=== PATIENT | female | born 1985 | race Caucasian/White ===

== ENCOUNTER 2024-08-28 08:37 | Outpatient (AMB) | payer MEDICAID, SELFPAY ==
--- OUTSIDE RECORDS SUMMARY | 2024-08-28 08:41 | XMS_ITS ---
Author Organization [facility] Address [address] [place] [address] Care Team Providers Care Diploma Pharmacy Technician Name Role Phone Jaimee Simmons Primary Care Provider Benji Cleveland Unavailable [phone] Mercedes Amor Unavailable [phone] REASON FOR VISIT New Refill Request Medications Medication SIG (Take, Route, Frequency, Duration) Notes Start Date End Date Status Adderall XR 15 MG 1 capsule in the morning Orally Once a day for 60 days Brand name only please for insurance pls 08/10/2024 Active Amphetamine-Dextroam phetamine 10 MG 1 tablet Orally Twice a day for 60 days for ADHD 08/10/2024 Active Encounters Encounter Location Date Provider Diagnosis [facility] [address] [address] 08/10/2024 Mercedes Amor Attention deficit disorder / ADHD (unspecified) F90.9 Assessments Encounter Date Diagnosis (ICD Code) Assessment Notes Treatment Notes Treatment Clinical Notes Section Notes 08/10/2024 Attention deficit disorder / ADHD (unspecified) (ICD-10 - F90.9) Plan Of Treatment Medication Medication Name Sig Start Date Stop Date Notes Adderall XR 15 MG 1 capsule in the morning Orally Once a day for 60 days 08/10/2024 Brand name only please for insurance pls Amphetamine-Dextroamphe tamine 10 MG 1 tablet Orally Twice a day for 60 days 08/10/2024 for ADHD Next Appt Details Provider Name:Mercedes geller, 09/07/2024 09:30:00 AM, [address] [place] [address], [id number], Provider Name:Benji Cleveland, 0 08/18/2025 08:30:00 AM, [address] [place], [address], Progress Notes * REID CASAREZDOB: [birth year] (38 yo F)Acc No.[id number]:08/10/2024 Patient:?REID CASAREZ :1985???Age:38 Y???Sex:Female Address:[address] [place] [address] , [address], [address] * Refills? Refill Adderall XR Capsule Extended Release 24 Hour, 15 MG, Orally, 60 Capsule, 1 capsule in the morning, Once a day, 60 days, Refills=0 Refill Amphetamine-Dextroamphetamine Tablet, 10 MG, Orally, 120 Tablet, 1 tablet, Twice a day, 60 days, Refills=0 * true * Date:? Generated for Lila vilchis/Geronimo/Edvinsmitting on:?08/28/2024 08:41 AM EDT
--- OUTSIDE RECORDS SUMMARY | 2024-08-28 08:42 | XMS_ITS | Patient Health Record ---
Author Organization [facility] atif Address [address] [place] [address] Care Team Providers Care Burner Technician Name Role Phone Jaimee Simmons Primary Care Provider [phone] Benji Cleveland Unavailable [phone] Mercedes Amor Unavailable [phone] [employer], Provider Unavailable Unavailab Yonatan Nix Unavailable [phone] Allergies Allergen (clinical drug ingredient) Drug/Non Drug Allergy documented on EMR Reaction Allergy Type Onset Date Status quetiapine QUEtiapine dizzy Drug Allergy Inact chago guanfacine guanFACINE dizzy, insomnia Drug Allergy Active clonidine Clonidine dizziness, hangover Drug Allergy Active bupropion Wellbutrin XL very very anxious Drug Allergy Active methylphenidate Ritalin paranoid Drug Allergy A ctive Melatonin harder to settle down Drug Allergy Inactive escitalopram Lexapro more depressed Drug Allergy Active RAW APPLES (uncoded) Unknown Allergy Active DUST, MOLD, TREES, GRASSES (uncoded) Unknown Allergy Active Results Component Value Reference Range Notes URINE G/C (33123 NOHO) Reviewed date:08/17/2024 08:07:51 AM Interpretation: Performing Lab:[facility], [facility]/Brannon Coffey [id number] Kannan Mercer, [id number] Jose Becker M.D.,PhD Notes/Report: Received Date: [id number] NON-FASTING; NON-FASTING; NON-FASTING; NON-FASTING; NON-FAST CHLAMYDIA TRACHOMATIS RNA, TMA, UROGENITAL Not Detected Not Detected NEISSERIA GONORRHOEAE RNA, TMA, UROGENITAL Not Detected Not Detected Methodology: Materials Inspector Mediated Amplification(TMA) to detect RNA. The analytical performance characteristics of this assay, when used to test [facility] specimens have been determined by [employer]. The modifications have not been cleared or approved by the FDA. This assay has been validated pursuant to the CLIA regulations and is used for clinical purposes. For additional information, please refer to https://education.[employer]faq/BWF766 (This link is being provided for information/educational purposes only). Syphilis - RPR (DX) W/REFL T ITER AND CONFIRMATORY TESTING Reviewed date:08/13/2024 01:37:41 PM Interpretation: Performing Lab:[facility] Efraín Horn Notes/Report: Received Date: [id number] NON-FASTING; NON-FASTING; NON-FASTING; NON-FASTING; NON-FAST RPR (DX) W/REFL TITER AND CONFIRMATORY TESTING NON-REACTIVE NON-REACTIVE No laboratory evidence of syphilis. If recent exposure is suspected, submit a new sample in 2-4 weeks. TSH, 3RD GENERATION W/REFLEX TO FT4 Reviewed date:08/13/2024 10:08:14 AM Interpretation: Performing Lab:[facility] Efraín Horn Notes/Report: Received Date: [id number] NON-FASTING; NON-FASTING; NON-FASTING; NON-FASTING; NON-FAST TSH W/REFLEX TO FT4 1.96 Reference Range > or = 20 Years 0.40-4.50 Ranges First trimester 0.26-2.66 Second trimester 0.55-2.73 Third trimester 0.43-2.91 COMPREHENSIVE METABOLIC [facility] -36739 Reviewed date:08/13/2024 10:07:50 AM Interpretation: Performing Lab:[facility] Efraín Horn Notes/Report: Received Date: [id number] NON-FASTING; NON-FASTING; NON-FASTING; NON-FASTING; NON-FAST GLUCOSE 83 65-99 mg/dL Fasting reference interval UREA NITROGEN (BUN) 18 7-25 mg/dL CREATININE 0.70 0.50-0.97 mg/dL EGFR 114 > OR = 60 mL/min/1.73m2 BUN/CREATININE RATIO SEE NOTE: 6-22 (calc) Not Reported: BUN and Creatinine are within reference range. SODIUM 141 135-146 mmol/L POTASSIUM 4.4 3.5-5.3 mmol/L CHLORIDE 103 98-110 mmol/L CARBON DIOXIDE 28 20-32 mmol/L CALCIUM 9.7 8.6-10.2 mg/dL PROTEIN, TOTAL 7.1 6.1-8.1 g/dL ALBUMIN 4.8 3.6-5.1 g/dL GLOBULIN 2.3 1.9-3.7 g/dL (calc) ALBUMIN/GLOBULIN RATIO 2.1 1.0-2.5 (calc) BILIRUBIN, TOTAL 0.5 0.2-1.2 mg/dL ALKALINE PHOSPHATASE 61 31-125 U/L AST 16 10-30 U/L ALT 22 6-29 U/L HIV AB-AG 4TH GENERATION Reviewed date:08/13/2024 10:08:08 AM Interpretation: Performing Lab:NL2, [facility] [address] [place], [place] [address] Efraín Horn Notes/Report: Received Date: [id number] NON-FASTING; NON-FASTING; NON-FASTING; NON-FASTING; NON-FAST HIV AG/AB, 4TH GEN NON-REACTIVE NON-REACTIVE HIV-1 antigen and HIV-1/HIV-2 antibodies were not detected. There is no laboratory evidence of HIV infection. PLEASE NOTE: This information has been disclosed to you from records whose confidentiality may be protected by state law. If your state requires such protection, then the state law prohibits you from making any further disclosure of the information without the specific written consent of the person to whom it pertains, or as otherwise permitted by law. A general authorization for the release of medical or other information is NOT sufficient for this purpose. For additional information please refer to http://education.[employer]/faq/GOF315 (This link is being provided for informational/ educational purposes only.) The performance of this assay has not been clinically validated in patients less than 2 years old. CBC NO DIFF - 1759 Reviewed date:08/13/2024 10:07:57 AM Interpretation: Performing Lab:NL[facility], [facility] [id number] [facility] Efraín Horn Notes/Report: Received Date: NON-FASTING; NON-FASTING; NON-FASTING; NON-FASTING; NON-FAST WHITE BLOOD CELL COUNT 6.7 3.8-10.8 Thousand/ uL RED BLOOD CELL COUNT 4.78 3.80-5.10 Million/uL HEMOGLOBIN 15.0 11.7-15.5 g/dL HEMATOCRIT 44.6 35.0-45.0 % MCV 93.3 80.0-100.0 fL MCH 31.4 27.0-33.0 pg MCHC 33.6 32.0-36.0 g/dL For adults, a slight decrease in the calculated MCHC value (in the range of 30 to 32 g/dL) is most likely not clinically significant; however, it should be interpreted with caution in correlation with other red cell parameters and the patient's clinical condition. RDW 11.8 11.0-15.0 % PLATELET COUNT 300 140-400 Thousand/uL MPV 10.8 7.5-12.5 fL Reason For Referral Reason Allergies Diagnosis 1 Allergic rhinitis du e to pollen (J30.1) Diagnosis 2 Allergy to animal (c at) (dog) hair and dander (J30.81) Diagnosis 3 Allergic rhinitis, u nspecified (J30.9) Diagnosis 4 Other allergic rhini tis (J30.89) Referral Organization [facility] Referring Provider First Name Benji Referring Provider Last Name Cristofer Referring Provider Speciality [facility] Referred Provider GROUP MARIELLA Referred Provider Specialty Allergy/Immu nology General Notes Jamila Whipple 05/21 02:23:49 PM > referral faxed to: [phone], You have successfully submitted the Referral for REID CASAREZ ., The following Referral Authorization Number should be retained in your records., Referral Authorization # [id number], Number of Visits 60 Clinical Notes Provider Name: GROUP MARIELLA, Provider ID Number: , Provider UPIN: Rere barreto [phone], Provider , Provider Facility: , Provider Speciality: Allergy/Immunology, Address1: [address] [facility], Address2: [facility] phone- , [facility], Zip: [place], [address], , Appt. Date/Time: , Referral Priority Routine Reason Chronic L outer thig h pain, numbness Diagnosis 1 Pain leg, left (M79. 605) Referral Organization [facility] Referring Provider First Name Benji Referring Provider Last Name Cristofer Referring Provider Speciality [facility] Referred Provider [facility], [facility] Referred Provider Specialty Pain Managem ent General Notes Jamila Whipple 07/19 10:54:42 AM > referral faxed to: [phone], You have successfully submitted the Referral for REID CASAREZ ., The following Referral Authorization Number should be retained in your records., Referral Authorization # [id number], Number of Visits 12 Clinical Notes Provider Name: [facility], [facility], Provider ID Number: , Provider UPIN: , Provider , Provider Facility: , Provider Speciality: Pain Management, Address1: [address], Address2: [address], [facility], Zip: [place], [address], , Appt. Date/Time: , Referral Priority Routine Medications Medication SIG (Take, Route, Frequency, Duration) Notes Start Date End Date Status ZyrTEC Allergy 10 MG 1 tab(s) orally once a day Active LITHIUM ORATATE 10MG 1 TAB PO ONCE A DAY Active DULoxetine HCl 20 MG TAKE 1 CAPSULE BY MOUTH EVERY DAY FOR 90 DAYS for 90 Active LAMICTAL 150 mg 1 tab(s) orally 2 times a day for 30 days Active Levalbuterol Tartrate 45 MCG/ACT 2 puff(s) inhaled every 4 hours for 30 day(s) prn Active Xyzal Allergy 24HR 5 MG 1 tab(s) orally once a day (in the evening) for 30 day(s) Active Cromolyn Sodium 20 MG/2ML 2 mL orally TID Active Vitamin D3 25 MCG (1000 UT) PO BID Active Pregabalin 75 MG 1 capsule Orally twice a day for 60 days 06/17/2024 Active Diclofenac Sodium 75 MG 1 tab(s) orally 2 times a day for 30 days Active Qvar RediHaler 40 MCG/ACT 1 puff Inhalation Twice a day Active Adderall XR 15 MG 1 capsule in the morning Orally Once a day for 60 days Brand name only please for insurance pls 08/10/2024 Active CYMBALTA 20 mg 1 cap(s) orally once a day for 90 days Active Amphetamine-Dextroamp hetamine 10 MG 1 tablet Orally Twice a day for 60 days for ADHD 08/10/2024 Active Immunizations Vaccine Route Administration Date Status Comme nts FLUBLOK PURCHASED IM Intramuscular 02/19/2019 Administered TDAP >7 PURCHASED (ADACEL) IM Intramuscular 02/20/2019 Administered COVID-19 Vaccine (Fantoo), History Unknown 08/06/2020 Administered COVID-19 Vaccine (Pfizer), History Unknown 08/27/2020 Administered FLUBLOK PURCHASED IM Intramuscular 07/28/2021 Administered TDAP >7 PURCHASED (ADACEL) IM Intramuscular 07/28/2021 Administered Covid Vac Bivalent Pfizer (history) 12+ Unknown 02/08/2022 Administered lot [id number], luisSplother Flu Vaccine; History Unknown 05/12/2024 Administered COVID19 NOVAVAX HISTORY Unknown 05/12/2024 Administered Problems Problem Type SNOMED Code ICD Code Onset Dates Problem Status W/U Status Risk Notes Problem Attention deficit hyperactivity disorder (711809210) Attention deficit disorder / ADHD (unspecified) (F90.9) Active confirmed Problem Allergic rhinitis (48702395) Allergic rhinitis, unspecified (J30.9) Active confirmed Problem Skin sensation disturbance (21452263) Paresthesia of skin (R20.2) Active confirmed Problem Cyclothymic disorder (15315681) Cyclothymic disorder (F34.0) Active confirmed Problem Allergic rhinitis due to pollen (45013987) Allergic rhinitis due to pollen (J30.1) Active confirmed Problem Exercise induced bronchospasm (271564456) Exercise induced bronchospasm (J45.990) Active confirmed Problem Obese class II (348250729002019) BMI 35.0-35.9, adult (Z68.35) Active confirmed Problem Attention deficit hyperactivity disorder (025463100) ADHD, unspecified type (F90.9) Active confirmed Problem Chronic allergic conjunctivitis (45986551) Other chronic allergic conjunctivitis (H10.45) Active confirmed Problem Allergic rhinitis (46213405) Other allergic rhinitis (J30.89) Active confirmed Problem Mild intermittent asthma (783219961) Mild intermittent asthma, uncomplicated (J45.20) Active confirmed Problem Allergic rhinitis caused by animal hair and dander (558961394959854) Allergy to animal (cat) (dog) hair and dander (J30.81) Active confirmed Vital Signs Temperature 98.0 degrees Fahrenheit 08/12/2024 Oximetry 99 08/12/2024 Blood pressure diastolic 76 mm Hg 08/12/2024 Height 63.03 in 08/12/2024 Blood pressure systolic 120 mm Hg 08/12/2024 Weight 199 lbs 08/12/2024 BMI 35.21 kg/m2 08/12/2024 Encounters Encounter Location Date Provider Diagnosis [facility] [address] [address] 08/12/2024 Benji Cristofer Adult physical HERBERT L Z00.00 ; Pain leg, left M79.605 ; Mild intermittent asthma, uncomplicated J45.20 ; Encounter for screening for infections with a predominantly sexual mode of transmission Z11.3 ; BMI 35.0-35.9, adult Z68.35 and Fatigue R53.83 [place] [address] [place] [address] 09/17/2023 Mercedes Vaillant ADHD, unspecified type F90.9 [place] [address] [place] [address] 09/24/2023 Mercedes Vaillant ADHD, unspecified type F90.9 [place] [address] [place] [address] 10/08/2023 Mercedes Vaillant ADHD, unspecified type F90.9 [place] [address] [place] [address] 10/15/2023 Mercedes Vaillant ADHD, unspecified type F90.9 [place] [address] [place] [address] 10/22/2023 Mercedes Vaillant ADHD, unspecified type F90.9 [place] [address] [place] [address] 10/29/2023 Mercedes Vaillant ADHD, unspecified type F90.9 [place] [address] [place] [address] 11/05/2023 Mercedes Vaillant ADHD, unspecified type F90.9 [place] [address] [place] [address] 11/10/2023 Provider LAZMijessica [place] [address] [place] [address] 11/11/2023 Mercedes Vaillant Attention deficit disorder / ADHD (unspecified) F90.9 and Cyclothymic disorder F34.0 [place] [address] [place] [address] 11/12/2023 Mercedes Vaillant ADHD, unspecified type F90.9 [place] [address] [place], [place] [address] 12/17/2023 Mercedes Vaillant ADHD, unspecified type F90.9 [facility] [place] [address] 01/07/2024 Mercedes Vaillant Attention deficit disorder / ADHD (unspecified) F90.9 and Cyclothymic disorder F34.[address] [facility] [address] [address] 01/09/2024 Benji Cristofer ADHD, unspecified type F90.9 ; Fatigue R53.83 and Cyclothymic disorder F34.[address] [address] 02/12/2024 Jaimee Simmons Cyclothymic disorder F34.[address] [facility] [address] [address] 02/17/2024 Mercedes Vaillant Attention deficit disorder / ADHD (unspecified) F90.9 and Cyclothymic disorder F34.0 [place] [address] [place] [address] 02/18/2024 Jaimee Simmons ADHD, unspecified type F90.9 and Cyclothymic disorder F34.[address] [facility] [address] [address] 02/26/2024 Jaimee Simmons Cyclothymic disorder F34.0 and Attention deficit disorder / ADHD (unspecified) F90.9 [place] [address] [place] [address] 04/07/2024 Mercedes Amor Attention deficit disorder / ADHD (unspecified) F90.9 and Cyclothymic disorder F34.0 [facility] [address] [place] [address] 07/13/2024 Mercedesdaniele Amor Attention deficit disorder / ADHD (unspecified) F90.9 and Cyclothymic disorder F34.0 [place] [address] [place] [address] 09/13/2023 Benji Cleveland Pain leg, left M79.605 [place] [address] [place] [address] 09/20/2023 Jaimee Simmons [place] [address] [place] [address] 10/04/2023 Benji Cleveland [place] [address] [place] [address] 11/11/2023 Jaimee [place] [address] [place] [address] 11/11/2023 Mercedes Amor [place] [address] [place] [address] 01/07/2024 Jaimee Simmons [place] [address] [place] [address] 01/09/2024 Benji Cleveland [place] [address] [place] [address] 02/26/2024 Jaimee Simmons [place] [address] [place] [address] 03/24/2024 Jaimee Simmons [facility] [address] [place] [address] 03/24/2024 Jaimee Simmons [facility] [address] [place] [address] 04/07/2024 Jaimee Simmons [facility] [address] [place] [address] 06/02/2024 Jaimee Simmons [facility] [address] [place] [address] 06/17/2024 Benji Cleveland Fatigue R53.83 [facility] [address] [place] [address] 06/24/2024 Benji Cleveland [facility] [address] [place] [address] 07/27/2024 Benji Cleveland [address] [address] 09/12/2023 Benji Cleveland Pain leg, left M79.[address] [address] 09/12/2023 Benji Cleveland Pain leg, left M79.[address] [address] 09/13/2023 Benji Cleveland Pain leg, left M79.[address] [address] 10/03/2023 Mercedes Amor Attention deficit disorder / ADHD (unspecified) F90.[address] [address] 10/03/2023 Mercedes Amor Attention deficit disorder / ADHD (unspecified) F90.[address] [address] 02/12/2024 Mercedes Amor Attention deficit disorder / ADHD (unspecified) F90.[address] [address] 06/12/2024 Yonatan Lehman Attention deficit disorder / ADHD (unspecified) F90.[address] [address] 08/10/2024 Mercedes Amor Attention deficit disorder / ADHD (unspecified) F90.9 Assessments Encounter Date Diagnosis (ICD Code) Assessment Notes Treatment Notes Treatment Clinical Notes Section Notes 08/12/2024 Adult physical NORMAL (ICD-10 - Z00.00) see below 08/12/2024 Pain leg, left (ICD-10 - M79.605) Notes chronic L thigh numbness , pain sensation. With medication has been less noticable but still present. Has had prior EMG and evaluation due to pain. 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 Referral to [facility] pain management made 09/17/2023 ADHD, unspecified type (ICD-10 - F90.9) Notes: Notes: Pt appears tearful at times, reflective, grounded Risk assessment: Passive SI, ongoing; No SH; No HI Clinical Intervention: Supportive and empathetic listening. Space for Lucy to process recent stressors, challenges, and successes. Facilitated identification of support strategies, and processed coping strategies around unmet expectations of others. Pts response to intervention: Engaged. Processed recent points of stress, connection, and accomplishment. Reflected on self growth, progress towards goals. Identified support strategies. 09/24/2023 ADHD, unspecified type (ICD-10 - F90.9) Notes: Notes: Pt appears tearful at times, reflective, grounded Risk assessment: Passive SI, ongoing; No SH; No HI Clinical Intervention: Supportive and empathetic listening. Space for Lucy to process recent stressors, challenges, and successes. Facilitated identification of support strategies, and processed coping strategies around unmet expectations of others. Pts response to intervention: Engaged. Processed recent points of stress, connection, and accomplishment. Reflected on self growth, progress towards goals. Identified support strategies. 10/08/2023 ADHD, unspecified type (ICD-10 - F90.9) Notes: Notes: Pt appears tearful at times, reflective, grounded Risk assessment: Passive SI, ongoing; No SH; No HI Clinical Intervention: Supportive and empathetic listening. Space for Lucy to process recent stressors, challenges, and successes. Facilitated identification of support strategies, and processed coping strategies around unmet expectations of others. Pts response to intervention: Engaged. Processed recent points of stress, connection, and accomplishment. Reflected on self growth, progress towards goals. Identified support strategies. 10/15/2023 ADHD, unspecified type (ICD-10 - F90.9) Notes: Notes: Pt appears tearful at times, reflective, grounded Risk assessment: Passive SI, ongoing; No SH; No HI Clinical Intervention: Supportive and empathetic listening. Space for Lucy to process recent stressors, challenges, and successes. Facilitated identification of support strategies, and processed coping strategies around unmet expectations of others. Pts response to intervention: Engaged. Processed recent points of stress, connection, and accomplishment. Reflected on self growth, progress towards goals. Identified support strategies. 10/22/2023 ADHD, unspecified type (ICD-10 - F90.9) Notes: Notes: Pt appears tearful at times, reflective, grounded Risk assessment: Passive SI, ongoing; No SH; No HI Clinical Intervention: Supportive and empathetic listening. Space for Lucy to process recent stressors, challenges, and successes. Facilitated identification of support strategies, and processed coping strategies around unmet expectations of others. Pts response to intervention: Engaged. Processed recent points of stress, connection, and accomplishment. Reflected on self growth, progress towards goals. Identified support strategies. 10/29/2023 ADHD, unspecified type (ICD-10 - F90.9) Notes: Notes: Pt appears tearful at times, reflective, grounded Risk assessment: Passive SI, ongoing; No SH; No HI Clinical Intervention: Supportive and empathetic listening. Space for Lucy to process recent stressors, challenges, and successes. Facilitated identification of support strategies, and processed coping strategies around unmet expectations of others. Pts response to intervention: Engaged. Processed recent points of stress, connection, and accomplishment. Reflected on self growth, progress towards goals. Identified support strategies. 11/05/2023 ADHD, unspecified type (ICD-10 - F90.9) Notes: Notes: Pt appears tearful at times, reflective, grounded Risk assessment: Passive SI, ongoing; No SH; No HI Clinical Intervention: Supportive and empathetic listening. Space for Lucy to process recent stressors, challenges, and successes. Facilitated identification of support strategies, and processed coping strategies around unmet expectations of others. Pts response to intervention: Engaged. Processed recent points of stress, connection, and accomplishment. Reflected on self growth, progress towards goals. Identified support strategies. 11/11/2023 Attention deficit disorder / ADHD (unspecified) (ICD-10 - F90.9) Extensive counseling and emotional support. Coordination of care and vrpi-mk-natv counseling constituted more than half of the visit, review concerns, medications, coping, consultations etc. , Pt reports significant improvement in focus, clarity and overall executive function. Denies SE/AE including insomnia, irritability, increased impulsivity, loss of appetite, weight change, BED sx, cardiac symptoms, crash, or neurological sequelae such as tics or twitches. 11/11/2023 Cyclothymic disorder (ICD-10 - F34.0) Overlall well supported; with good insight and judgment. Mood stabilizing somewhat on cymbalta, increased lamictal; no changes made today. Needs a therapist; moving, between jobs: advised that this is a vulnerable time and to prioritize what they can control, I.e. sleep, self care, communication. Enc to try again with Leaves of Change or QUINCY. Meds therapeutic and tolerated, will continue as written, TE to PCP re: possibility of lyrica Refills sent as needed. RTO 3 mos tele 11/12/2023 ADHD, unspecified type (ICD-10 - F90.9) Notes: Notes: Pt appears tearful at times, reflective, grounded Risk assessment: Passive SI, ongoing; No SH; No HI Clinical Intervention: Supportive and empathetic listening. Space for Lucy to process recent stressors, challenges, and successes. Facilitated identification of support strategies, and processed coping strategies around unmet expectations of others. Pts response to intervention: Engaged. Processed recent points of stress, connection, and accomplishment. Reflected on self growth, progress towards goals. Identified support strategies. 12/17/2023 ADHD, unspecified type (ICD-10 - F90.9) Notes: Notes: Pt appears tearful at times, reflective, grounded Risk assessment: Passive SI, ongoing; No SH; No HI Clinical Intervention: Supportive and empathetic listening. Space for Lucy to process recent stressors, challenges, and successes. Facilitated identification of support strategies, and processed coping strategies around unmet expectations of others. Pts response to intervention: Engaged. Processed recent points of stress, connection, and accomplishment. Reflected on self growth, progress towards goals. Identified support strategies. 01/07/2024 Attention deficit disorder / ADHD (unspecified) (ICD-10 - F90.9) Extensive counseling and emotional support. Coordination of care and uurz-xt-vjei counseling constituted more than half of the visit, review concerns, medications, coping, consultations etc. , Pt reports significant improvement in focus, clarity and overall executive function. Denies SE/AE including insomnia, irritability, increased impulsivity, loss of appetite, weight change, BED sx, cardiac symptoms, crash, or neurological sequelae such as tics or twitches. Enc to f/u on therapy and pain mgmt appt Needs help with structure so we discussed EFE and enc to f.u with [facility] to enroll 01/07/2024 Cyclothymic disorder (ICD-10 - F34.0) Overlall well supported; with good insight and judgment. Mood stabilizing somewhat on cymbalta, increased lamictal; no changes made today. seeing ZA and likes her, has been off much of the summer Meds therapeutic and tolerated, will continue as written, TE to PCP re: possibility of lyrica Refills sent as needed. RTO 3 mos tele 01/09/2024 ADHD, unspecified type (ICD-10 - F90.9) Managed by psychiatrist, had recent check in, stable. 01/09/2024 Fatigue (ICD-10 - R53.83) will plan to begin lyrica in relation to chronic pain, fatigue, mood. Reviewed proper use, potential side effects and possible medication interactions. Has close follow up with psychiatrist scheduled. Call back sooner as needed 02/12/2024 Cyclothymic disorder (ICD-10 - F34.0) - Provided psychoeducation related to anxiety and nervous system states - Engaged patient in coherent breathing training to activate parasympathetic nervous system. Patient reports my mind is not as loud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
--- OUTSIDE RECORDS SUMMARY | 2024-08-28 08:42 | XMS_ITS ---
Author Organization [facility] atif Address [address] [place] [address] Care Team Providers Care Stave Grader Name Role Phone Jaimee Simmons Primary Care Provider Benji Cleveland Unavailable [phone] Allergies Allergen (clinical drug ingredient) Drug/Non Drug Allergy documented on EMR Reaction Allergy Type Onset Date Status Melatonin harder to settle down Drug Allergy Inactive escitalopram Lexapro more depressed Drug Allergy Active RAW APPLES (uncoded) Unknown Allergy Active DUST, MOLD, TREES, GRASSES (uncoded) Unknown Allergy Active clonidine Clonidine dizziness, hangover Drug Allergy Active bupropion Wellbutrin XL very very anxious Drug Allergy Active methylphenidate Ritalin paranoid Drug Allergy A ctive quetiapine QUEtiapine dizzy Drug Allergy Inact chago guanfacine guanFACINE dizzy, insomnia Drug Allergy Active Results Component Value Reference Range Notes URINE G/C (56094 NOHO) Reviewed date:08/17/2024 08:07:51 AM Interpretation: Performing Lab:Kp MEJIAS/Brannon SpicerDannielle [id number] [facility] , [id number] Jose Becker M.D.,PhD Notes/Report: Received Date: [id number] NON-FASTING; NON-FASTING; NON-FASTING; NON-FASTING; NON-FAST CHLAMYDIA TRACHOMATIS RNA, TMA, UROGENITAL Not Detected Not Detected NEISSERIA GONORRHOEAE RNA, TMA, UROGENITAL Not Detected Not Detected Methodology: Copy Messenger Mediated Amplification(TMA) to detect RNA. The analytical performance characteristics of this assay, when used to test SurePath specimens have been determined by [employer] The modifications have not been cleared or approved by the FDA. This assay has been validated pursuant to the CLIA regulations and is used for clinical purposes. For additional information, please refer to https://Keepy.Gudog/faq/DOG045 (This link is being provided for information/educational purposes only). Syphilis - RPR (DX) W/REFL T ITER AND CONFIRMATORY TESTING Reviewed date:08/13/2024 01:37:41 PM Interpretation: Performing Lab:MONI[facility], [employer] [facility] Efraín Horn Notes/Report: Received Date: [id number] NON-FASTING; NON-FASTING; NON-FASTING; NON-FASTING; NON-FAST RPR (DX) W/REFL TITER AND CONFIRMATORY TESTING NON-REACTIVE NON-REACTIVE No laboratory evidence of syphilis. If recent exposure is suspected, submit a new sample in 2-4 weeks. TSH, 3RD GENERATION W/REFLEX TO FT4 Reviewed date:08/13/2024 10:08:14 AM Interpretation: Performing Lab:MONI[facility], [employer] [facility] Efraín Horn Notes/Report: Received Date: [id number] NON-FASTING; NON-FASTING; NON-FASTING; NON-FASTING; NON-FAST TSH W/REFLEX TO FT4 1.96 Reference Range > or = 20 Years 0.40-4.50 Ranges First trimester 0.26-2.66 Second trimester 0.55-2.73 Third trimester 0.43-2.91 [facility] -[address] Reviewed date:08/13/2024 10:07:50 AM Interpretation: Performing Lab:NL2, [employer] [facility] Efraín Horn Notes/Report: Received Date: [id number] NON-FASTING; NON-FASTING; NON-FASTING; NON-FASTING; NON-FAST GLUCOSE 83 [...] Reviewed date:08/13/2024 10:08:08 AM Interpretation: Performing Lab:NL2, [employer] [facility] Efraín Horn Notes/Report: Received Date: [id number] NON-FASTING; NON-FASTING; NON-FASTING; NON-FASTING; NON-FAST HIV AG/AB, [...] purpose. For additional information please refer to http://education.Bouju.JOYsee [employer]/faq/RPZ670 (This link is being provided for informational/ educational purposes only.) The performance of this assay has not been clinically validated in patients less than 2 years old. CBC NO DIFF - 1759 Reviewed date:08/13/2024 10:07:57 AM Interpretation: Performing Lab:NL2, [employer] [facility] Efraín Horn Notes/Report: Received Date: [id number] NON-FASTING; NON-FASTING; NON-FASTING; NON-FASTING; NON-FAST WHITE BLOOD [...] 10.8 7.5-12.5 fL Reason For Referral Reason Chronic L outer thig h pain, numbness Diagnosis 1 Pain leg, left (M79. 605) Referral Organization [facility] Referring Provider First Name Benji Referring Provider Last Name Cristofer Referring Provider Speciality Family Pra ctice Referred Provider [facility], Pain Management Center Referred Provider Specialty Pain Managem ent General Notes Jamila Whipple 07/19 10:54:42 AM > referral faxed to: [phone], You have successfully submitted the Referral for REID CASAREZ ., The following Referral Authorization Number should be retained in your records., Referral Authorization # [id number], Number of Visits 12 Clinical Notes Provider Name: [facility] [place], [facility], Provider ID Number: , Provider UPIN: , Provider , Provider Facility: , Provider Speciality: Pain Management, Address1: [address], Address2: [address], City, [facility], Zip: [place], [address], , Appt. Date/Time: , Referral Priority Routine REASON FOR VISIT CPE- fu, PHQ9: in progress, PAP: last 08/04/2022 (NILM, HPV negative), Imms: UTD (checked miis ldb),Hearing screen:, LEAH= 3, ADHD=47 Medications Medication SIG (Take, Route, Frequency, Duration) Notes Start Date End Date Status LAMICTAL 150 mg 1 tab(s) orally 2 times a day for 30 days Active Xyzal Allergy 24HR 5 MG 1 tab(s) orally once a day (in the evening) for 30 day(s) Active Cromolyn Sodium 20 MG/2ML 2 mL orally TID Active Qvar RediHaler 40 MCG/ACT 1 puff Inhalation Twice a day Active CYMBALTA 20 mg 1 cap(s) orally once a day for 90 days Active Levalbuterol Tartrate 45 MCG/ACT 2 puff(s) inhaled every 4 hours for 30 day(s) prn Active Diclofenac Sodium 75 MG 1 tab(s) orally 2 times a day for 30 days Active Adderall XR 15 MG 1 capsule in the morning Orally Once a day for 60 days Brand name only please for insurance pls 08/10/2024 Active Amphetamine-Dextroamp hetamine 10 MG 1 tablet Orally Twice a day for 60 days for ADHD 08/10/2024 Active ZyrTEC Allergy 10 MG 1 tab(s) orally once a day Active LITHIUM ORATATE 10MG 1 TAB PO ONCE A DAY Active DULoxetine HCl 20 MG TAKE 1 CAPSULE BY MOUTH EVERY DAY FOR 90 DAYS for 90 Active Vitamin D3 25 MCG (1000 UT) PO BID Active Pregabalin 75 MG 1 capsule Orally twice a day for 60 days 06/17/2024 Active Vital Signs Temperature 98.0 degrees Fahrenheit 08/13/19 25 Blood pressure systolic 120 mm Hg 08/13/19 25 Blood pressure diastolic 76 mm Hg 025 Height 63.03 in 08/12/2024 Weight 199 lbs 08/12/2024 BMI 35.21 kg/m2 08/12/2024 Oximetry 99 08/12/2024 Encounters Encounter Location Date Provider Diagnosis [facility] [address] [address] 08/12/2024 Benji Cleveland Adult physical HERBERT L Z00.00 ; Pain leg, left M79.605 ; Mild intermittent asthma, uncomplicated J45.20 ; Encounter for screening for infections with a predominantly sexual mode of transmission Z11.3 ; BMI 35.0-35.9, adult Z68.35 and Fatigue R53.83 Assessments Encounter Date Diagnosis (ICD Code) Assessment [...] other non medication alternatives for management with painter mirror. Referral to [facility] pain management made 08/12/2024 Mild intermittent asthma, uncomplicated (ICD-10 - J45.20) Chronic Condition stable and controlled. continue same plan with current medication and scheduled reassessment, awaiting QVAR refill per insole department worker. Has samples in interim 08/12/2024 Encounter for screening for infections with a predominantly sexual mode of transmission (ICD-10 - Z11.3) 08/12/2024 BMI 35.0-35.9, adult (ICD-10 - Z68.35) reviewed lifestyle, update labs 08/12/2024 Fatigue (ICD-10 - R53.83) Discussed mood, supports, sleep challenges. Recommended CBT-I. Patient notes may have change in insurance and then will hopefully continue working with MILA and find therapist as well. 08/12/2024 Other see below Plan Of Treatment Treatment Notes Assessment Notes Adult physical NORMAL see below Pain leg, left Notes chronic L thig h numbness , pain sensation. With medication has been less noticable but still present. Has had prior EMG and evaluation due to pain. Given chronic nature patient would like to explore other non medication alternatives for management with painter mirror. Referral to [facility] pain management made Mild intermittent asthma, uncomplicated Chronic Condition stable and controlled. continue same plan with current medication and scheduled reassessment, awaiting QVAR refill per insole department worker. Has samples in interim BMI 35.0-35.9, adult reviewed lifestyle, update labs Fatigue Discussed mood, supp orts, sleep challenges. Recommended CBT-I. Patient notes may have change in insurance and then will hopefully continue working with MILA and find therapist as well. Other see below Pending Test Test Name Order Date COMP MET PANEL 08/12/2024 Referrals Referral Date Details 08/12/2024 08/12/2024, Chronic L outer thigh pain, numbness, Pain Management [facility] Next Appt Details Follow Up: 1 Year Frederic METZGER n: Provider Name:Mercedes geller, 09/07/2024 09:30:00 AM, [address] [place] [address], [address], Provider Name:Benji Cleveland, 0 08/18/2025 08:30:00 AM, [address] [place], [address], Progress Notes * REID CASAREZDOB: [birth year] (38 yo F)Acc No.[id number]:08/12/2024 Progress Notes Patient:?REID CASAREZ Appointment Provider:?SKYLER Soler :1985???Age:38 Y???Sex:Female S upervising Provider:Jaimee Simmons MD Date:08/12/2024 ?N#:[id number] Address:[address] [place] [address] , [address] [place] [address] Pcp:Jaimee Simmons Subjective: * Chief Complaints: * ???1. CPE- fu. 2. PHQ9: in p rogress. 3. PAP: last 08/04/2022 (NILM, HPV negative). 4. Imms: UTD (checked miis ldb). 5. Hearing screen:. 6. LEAH= 3. 7. ADHD=47. * HPI: ???Interim History:?38 year old patient presents for follow up Asthma has been stable. Working with insole department worker on management. QVAR is being held up by insurance and insole department worker working on getting it approved.? The chronic nerve pain to outside of L thigh is less prominent but still present. Considering diagnostic nerve block if possible with specialist. EMG was performed in past.? Working with mercedes maza for psychiatric management. But having to find new psychiatrist due to insurance.? 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 Has tried antihistamines, clonidine.? Exercise: biking, walking - life is more active No current therapist, may reconnect with dante. ???Depression Screening:?PHQ-9?Little interest or pleasure in doing things?Several days,?Feeling down, depressed, or hopeless?Several days,?Trouble falling or staying asleep, or sleeping too much?Nearly every day,?Feeling tired or having little energy More than half the days,?Poor appetite or overeating?More than half the days,?Feeling bad about yourself-or that you are a failure or have let yourself or your family down?More than half the days,?Trouble concentrating on things, such as reading the newspaper or watching television?Several days,?Moving or speaking so slowly that other people could have noticed. Or the opposite, being so fidgety or restless that you have been moving around a lot more than usual?Several days,?Thoughts that you would be better off , or of hurting yourself in some way?Several days(Consider Suicide Assessment Risk),?Total Score?14,?Intepretation?Moderate Depression.? * ROS:?See HPI. Other systems reviewed and noncontributory except for as noted above . * Medical History:?Asthma , De pression, ADHD, 04/09 colonoscopy, endoscopy [facility], 12/08-01/08 R Knee injections for pain and inflammation, Chronic nerve pain in L leg - [facility] - had EMG, Meralgia Paresthetica. 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 * Surgical History:?[place] eufemia th removal (15 years ago) . * Hospitalization/Major Diagno stic Procedure:?Denies Past Hospitalization. * Family History:?Father: dece ased 50 yrs, ETOH, suicide.?Mother: alive, Pre- diabetes, cystic breasts (BRCA negatve).?Paternal Grand Father: unknown.?Paternal Grand Mother: , T2DM.?Maternal Grand Father: alive 90 yrs, Hx of AL, stroke, skin cancer.?Maternal Grand Mother: , breast cancer.?Maternal uncle: alive, skin cancer.?Siblings: alive, 1 Brother with kidney cancer, s/p nephrectomy, 1 brother - depression, anxiety, ADD.?2 brother(s) . .? mother: DMII. * Social History:?Lives: [place], renting ; lives alone. Ed: Some college ([employer]). Smoking?Current Smoker:?nonsmoker,?Former Smoker:?No.?Alcohol: 1 drink per week. Drug use: No drugs. Marital Status: Dating, male and female partners. Children: None. 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 Christianity: none. Exercise: Exercise + cleaning;. Caffeine: Drinking 1-2 cup per day. Sexually active: Yes with males and females, has multiple partners and gets regular STI testing. Pets: None. Training for 50 mi bike ride. * Medications:?Taking Qvar Red iHaler 40 MCG/ACT Aerosol Breath Activated 1 puff Inhalation Twice a day , Taking CYMBALTA 20 mg delayed release capsule 1 cap(s) orally once a day , Taking LAMICTAL 150 mg tablet 1 tab(s) orally 2 times a day , Taking Xyzal Allergy 24HR 5 MG Tablet 1 tab(s) orally once a day (in the evening) , Taking Cromolyn Sodium 20 MG/2ML Nebulization Solution 2 mL orally TID , Taking Vitamin D3 25 MCG (1000 UT) Tablet PO BID , Taking ZyrTEC Allergy 10 MG Tablet 1 tab(s) orally once a day , Taking LITHIUM ORATATE 10MG TABLET 1 TAB PO ONCE A DAY , Taking DULoxetine HCl 20 MG Capsule Delayed Release Particles TAKE 1 CAPSULE BY MOUTH EVERY DAY FOR 90 DAYS , Taking Pregabalin 75 MG Capsule 1 capsule Orally twice a day , Taking Diclofenac Sodium 75 MG Tablet Delayed Release 1 tab(s) orally 2 times a day , Taking Adderall XR 15 MG Capsule Extended Release 24 Hour 1 capsule in the morning Orally Once a day , Notes to Pharmacist: Brand name only please for insurance pls, Taking Amphetamine-Dextroamphetamine 10 MG Tablet 1 tablet Orally Twice a day , Notes to Pharmacist: for ADHD, Taking Levalbuterol Tartrate 45 MCG/ACT Aerosol 2 puff(s) inhaled every 4 hours , Notes to Pharmacist: prn, Discontinued lamoTRIgine 150 MG Tablet TAKE 1 TABLET BY MOUTH TWICE A DAY FOR 30 DAYS , Medication List reviewed and reconciled with the patient * Allergies:?DUST, MOLD, TREES , GRASSES: Allergy, RAW APPLES: Allergy, guanFACINE: dizzy, insomnia - Side Effects, Ritalin: paranoid, Wellbutrin XL: very very anxious, Lexapro: more depressed - Side Effects, Clonidine: dizziness, hangover. Objective: * Vitals:?Initials:TW, Ht: 63. 03 in, Wt: 199 lbs, BMI: 35.21 Index, Temp: 98.0 F, Temp Route: T, HR: 88, PulseOx: 99, BP: 120/76. * Physical Examination:?GENERAL:?General Appearence:?well appearing, no acute distress.?SKIN:?Moles:?benign appearing.?LYMPH NODES:?Cervical:?none.?Supraclavicular:?none.?HEENT:?Head:?normocephalic.?Eyes:?ERLA.?Nose:?normal.?Tympanic membrane(s):?bilateral normal.?NECK:?General:?supple.?Thyroid:?Not enlarged.?Cervical lymph nodes:?normal.?Muscles:?normal.?CHEST:?Shape and expansion:?normal.?Breath sounds:?normal.?Rales:?no.?Wheezes:?no.?HEART:?Rhythm:?regular.?Heart sounds:?normal.?Murmurs:?no.?Clicks:?no.?ABDOMEN:?General:?normal.?Guarding:?no.?Tenderness:?no.?Masses:?no.?Liver, Spleen:?not palpable.?Hernia:?absent.?BACK:?Spine:?normal.?GENITOURINARY - FEMALE:?General:?deferred per pt preference, pap UTD.?EXTREMITIES:?Edema:?no.?Cyanosis:?no.?Clubbing:?no.?Tremors:?no.?Pulses:?2+ bilateral.?MUSCULOSKELETAL:?Upper extremity joints:?Normal.?Lower extremity joints:?Normal.?Cervical spines:?Normal.?L-S spines:?normal.?NEUROLOGICAL:?Sensory:?Notes diminished sensation to lateral aspect of L thigh on palpation, no tenderness.?Motor:?Normal.?Reflexes:?2+.?Gait:?Normal.? Assessment: * Assessment: 1.?Adult physical NORMAL - Z 00.00 (Primary)???2.?Pain leg, left - M79.605???3.?Mild intermittent asthma, uncomplicated - J45.20???4.?Encounter for screening for infections with a predominantly sexual mode of transmission - Z11.3? ?5.?BMI 35.0-35.9, adult - Z68.35???6.?Fatigue - R53.83??? Plan: * Treatment: 2.?Pain leg, left? Notes: Notes chronic L thigh numbness , pain sensation. With medication has been less noticable but still present. Has had prior EMG and evaluation due to pain. Given chronic nature patient would like to explore other non medication alternatives for management with painter mirror. Referral to [facility] pain management made? Referral To:[facility]??Pain Management ?Reason:Chronic L outer thigh pain, numbness 3.?Mild intermittent asthma, uncomplicated? Notes: Chronic Condition stable and controlled. continue same plan with current medication and scheduled reassessment, awaiting QVAR refill per insole department worker. Has samples in interim ?? 4.?Encounter for screening f or infections with a predominantly sexual mode of transmission?LAB: Syphilis - RPR (DX) W/REFL TITER AND CONFIRMATORY TESTING (Collection Date & Time - 08/12/2024 10:46 AM) ? Value Reference Range ?RPR (DX) W/REFL TITER A ND CONFIRMATORY TESTING NON-REACTIVE NON-REACTIVE - ?LAB: HIV AB-AG 4TH GENERATION (Collection Date & Time - 08/12/2024 10:46 AM)* ? Value Reference Range ?HIV AG/AB, 4TH GEN NON-REACTIVE NON- REACTIVE - ?LAB: URINE G/C ([address] [facility]) (Collection Date & Time - 08/12/2024 10:46 AM) * ? Value Reference Range ?CHLAMYDIA TRACHOMATIS R NA, TMA, UROGENITAL Not Detected Not Detected - * ?NEISSERIA GONORRHOEAE RNA, TMA, UROGENITAL Not De tected Not Detected - 5.?BMI 35.0-35.9, adult?LAB: COMP MET PANEL ?LAB: TSH, 3RD GENERATION W/REFLEX TO FT4 (Collection Date & Time - 08/12/2024 10:46 AM)* ? Value Reference Range ?TSH, 3RD GENERATION W/REFLEX TO FT4 1.96 - mIU/L ?LAB: CBC NO DIFF - 1759 (Collection Date & Time - 08/12/2024 10:46 AM)* ? Value Reference Range ?WHITE BLOOD CELL COUNT 6.7 3.8-10.8 - Thousand/uL * ?RED BLOOD CELL COUNT 4.78 3. 80-5.10 - Million/uL * ?HEMOGLOBIN 15.0 11.7-15.5 - g/dL * ?HEMATOCRIT 44.6 35.0-45.0 - % * ?MCV 93.3 80.0-100.0 - fL * ?MCH 31.4 27.0-33.0 - pg * ?MCHC 33.6 32.0-36.0 - g/d L * ?RDW 11.8 11.0-15.0 - % * ?PLATELET COUNT 300 140-400 - Thousand/uL * ?MPV 10.8 7.5-12.5 - fL Notes: reviewed lifestyle, update labs??6.?Fatigue? Notes: Discussed mood, supports, sleep challenges. Recommended CBT-I. Patient notes may have changein insurance and then will hopefully continue working with MILA and find therapist as well. ? 7.?Others? Notes: see below?? * Labs:? * ?Lab: COMPREHENSIVE META COREY [facility] -[id number] (Collection Date & Time - 08/12/2024 10:46 AM) ? Value Reference Range ?BUN/CREATININE RATIO SEE NOTE: - (calc) * ?GLUCOSE 83 65-99 - mg/dL * ?BUN 18 7-25 - mg/dL * ?CREATININE 0.70 0.50-0.97 - mg/dL * ?PROTEIN, TOTAL 7.1 6.1-8.1 - g/dL * ?SODIUM 141 135-146 - mmol/ L * ?POTASSIUM 4.4 3.5-5.3 - mmo l/L * ?CHLORIDE 103 98-110 - mmol/ L * ?BICARBONATE 28 20-32 - mmo l/L * ?CALCIUM 9.7 8.6-10.2 - mg/d L * ?BILIRUBIN,TOTAL 0.5 0.2-1.2 - mg/dL * ?ALK PHOS 61 31-125 - U/L * ?AST 16 10-30 - U/L * ?GLOBULIN 2.3 1.9-3.7 - g/dL (calc) * ?ALT 22 6-29 - U/L * ?ALBUMIN 4.8 3.6-5.1 - g/dL * ?AG RATIO 2.1 1.0-2.5 - (cari c) * ?EGFR 114 > OR = 60 - mL/ min/1.73m2 * Procedure Codes:?83914 PHQ9 or ADHD scale * Preventive Medicine:? ??Counseling:?Diet?.?Injury prevention?.?Exercise?.?Sexual practices?.?Breast self exam after periods?.?Domestic violence?.?Sunscreen?.?Calcium supplementation?.? * Follow Up:?1 Year CPE * Images: Billing Information: * Visit Code:? 62657 Preventive Care Est Pt. Age 18-39. * Procedure Codes:? 70636 PHQ9 or ADHD scale. Care Plan Details* * Electronic signature of Carline Simmons MD on 08/28/2024 at 08:42 AM EDT Sign off status: Pending * Appointment Provider:?SKYLER Soler Date :?08/12/2024 Generated for Lila vilchis/Geronimo/Iliritting on:?08/28/2024 08:42 AM EDT History and Physical Notes * HPI (History of Present Illness) Category Sub-Category Detail Notes Category Not es Depression Screening PHQ-9 Little inte rest or pleasure in doing things: Several days Feeling down, depressed, or hopeless: Se veral days Trouble falling or staying asleep, or sl eeping too much: Nearly every day Feeling tired or having little energy: M ore than half the days Poor appetite or overeating: More than h intermediate the days Feeling bad about yourself-o r that you are a failure or have let yourself or your family down: More than half the days Trouble concentrating on thi ngs, such as reading the newspaper or watching television: Several days Moving or speaking so slowly that other people could have noticed. Or the opposite, being so fidgety or restless that you have been moving around a lot more than usual: Several days Thoughts that you would be b connie off , or of hurting yourself in some way: Several days(Consider Suicide Assessment Risk) Total Score: 14 Intepretation: Moderate Depression Interim History 38 year old patient presents for follow up Asthma has been stable. Working with insole department worker on management. QVAR is being held up by insurance and insole department worker working on getting it approved. The chronic nerve pain to outside of L thigh is less prominent but still present. Considering diagnostic nerve block if possible with specialist. EMG was performed in past. Working with mercedes maza for psychiatric management. But having to find new psychiatrist due to insurance. 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 Has tried antihistamines, clonidine. Exercise: biking, walking - life is more active No current therapist, may reconnect with dante Physical Examination Category Sub-Category Detail Notes Section Note s HEENT Head: normocephalic Eyes: ERLA Nose: normal Tympanic membrane(s): bilateral normal NECK General: supple Thyroid: Not enlarged Cervical lymph nodes: normal Muscles: normal EXTREMITIES Edema: no Cyanosis: no Clubbing: no Tremors: no Pulses: 2+ bilateral BACK Spine: normal CHEST Shape and expansion: normal Percussion: Breath sounds: normal Rales: no Wheezes: no Breasts: Axillary nodes: HEART Rhythm: regular Murmurs: no Heart sounds: normal Clicks: no ABDOMEN General: normal Scars: Guarding: no Tenderness: no Masses: no Liver, Spleen: not palpable Inguinal nodes: Hernia: absent NEUROLOGICAL Sensory: Notes diminished sensation to lateral aspect of L thigh on palpation, no tenderness Motor: Normal Reflexes: 2+ Gait: Normal MUSCULOSKELETAL Upper extremity joints: Normal Lower extremity joints: Normal Cervical spines: Normal L-S spines: normal GENITOURINARY - FEMALE General: deferred per pt pr eference, pap UTD SKIN Moles: benign appearing GENERAL General Appearence: well appearing, no ac klamath distress LYMPH NODES Cervical: none Supraclavicular: none Axillary: Consultation Request Notes Referral Date Referring Provider Referred Provider Not es 08/12/2024 Benji Cleveland [facility], Pain Management Center Chronic L outer thigh pain, numbness
--- OUTSIDE RECORDS SUMMARY | 2024-08-28 08:42 | XMS_ITS ---
Author Organization [facility] atif Address [address] [place] [address] Care Team Providers Care Incident Response Engineer Name Role Phone Jaimee Simmons Primary Care Provider Benji Cleveland [phone] REASON FOR VISIT diclofenac refill (ebubble) Medications Medication SIG (Take, Route, Fr equency, Duration) Notes Start Date End Date Status Diclofenac Sodium 75 MG 1 tab(s) orally 2 times a day for 30 days Active Encounters Encounter Location Date Provider Diagnosis [facility] [address] [place] [address] 07/27/2024 Benji Cleveland Plan Of Treatment Medication Medication Name Sig Start Date Stop Date Notes Diclofenac Sodium 75 MG 1 tab(s) orally 2 times a day for 30 days Next Appt Details Provider Name:Mercedes geller, 09/07/2024 09:30:00 AM, [address] [place] [address], [phone], Provider Name:Benji Cleveland, 0 08/18/2025 08:30:00 AM, [address] [place] [address], [phone], Progress Notes * REID CASAREZDOB: [birth year] (38 yo F)Acc No.[id number]:07/27/2024 Patient:?REID CASAREZ :1985???Age:38 Y???Sex:Female Address:[address] [place] [address] , [address], [place], [address] * Refills? Refill Diclofenac Sodium Tablet Delayed Release, 75 MG, orally, 60 Tablet, 1 tab(s), 2 times a day, 30 days, Refills=0 * true * Date:? Generated for Lila vilchis/Geronimo/Goldie on:?08/28/2024 08:42 AM EDT
--- NOTE | 2024-08-28 08:43 | A.OFFVIS_ITS ---
Vital Signs 08/28/24 08:52 Height 5 ft 3 in Weight 204 lb 8 oz BMI 36.2 BP 136/79 Blood Pressure Location Lt brachial Position Sitting Pulse 101 H Pulse Source Pulse Oximeter Pulse Oximetry (%) 100 Oxygen Delivery Method Room Air Intake Visit Reasons: Chronic L outer thigh pain/numbness Intake Note: Pain today 0/10 Social Security Specialist Required: No Accompanied by: Self / Same As Patient Allergies apple Allergy (Unknown, Verified 08/28/24 09:03) Unknown guanfacine Allergy (Unknown, Verified 08/28/24 09:03) Dizziness bupropion [From Wellbutrin] Adverse Reaction (Unknown, Verified 08/28/24 09:03) Anxiety clonidine Adverse Reaction (Unknown, Verified 08/28/24 09:03) Dizziness escitalopram [From Lexapro] Adverse Reaction (Unknown, Verified 08/28/24 09:03) Depression methylphenidate [From Ritalin] Adverse Reaction (Unknown, Verified 08/28/24 09:03) paranoid HPI Comments Details: The patient is a 38-year-old female presenting with chronic left leg pain. The pain originated over seven years ago without a specific injury and has been predominantly characterized as neuropathic. Throughout this period, she engaged in activities like [employer] and underwent various therapeutic interventions with mixed results, including physical therapy, career developer, and massage therapy. Pharmacological treatment initially consisted of gabapentin, later changed due to side effects like altered taste and appetite. Current medication includes pregabalin, providing partial relief. The pain primarily resides above the knee, focusing on the lateral thigh and associated with sensations of tingling and numbness. While not attributable to distinct MRI findings from 2020, the pain persists and in the past was diagnosed as meralgia paresthetica. Sitting and lying down exacerbate the symptoms, though movement such as using an exercise ball provides temporary respite. A nerve conduction study revealed no notable abnormalities correlating with her presentation of symptoms. - Onset and Timing: Began over seven years ago while engaged in [employer] without clear trauma. - Quality and Character: Neuropathic, described as tingling, progressing to numb sensation. - Location: Primarily left lateral thigh, above the knee. - Radiation: Rarely extends to the foot; primarily localized. - Exacerbating Factors: Prolonged sitting, static postures. - Relieving Factors: Dynamic movement, exercise balls, avoidance of static sitt ing. - Interference: Sleep disturbance, inability to sit comfortably, difficulty with certain employment tasks. - Affect: Disturbing sleep, causing vivid dreams. - Analgesia: Pregabalin 75 mg twice daily; initial gabapentin trial with adverse effects. - Adverse Effects: Altered taste perception, decreased exercise enjoyment (from gabapentin). - Activities of Daily Living: Limited by pain; unable to perform certain work tasks efficiently. - Aberrant Drug Related Behaviors: None reported. ON LICENSE OF [facility] Medical History (Updated 08/28/24 @ 12:32 by Merlyn Garcia APRN, PANELBEATER) Fatigue Pain in left leg Meralgia paraesthetica ADHD Depression Asthma Social History Alcohol intake: current Alcohol intake frequency: a few times a week Patient Tobacco Use Status: Former Tobacco user Review of Systems Const Details: - Neurological: Reports pain and numbness in left lateral thigh from top to trochanter to just above knee; denies additional neuropathic symptoms. - Musculoskeletal: Reports left leg pain predominantly above knee; denies new back pain not previously noted. - General: Reports sleep disturbance due to pain; denies other systemic symptoms. Physical Exam Vital Signs: Last Vital Signs Pulse 101 H 08/28/24 08:52 BP 136/79 08/28/24 08:52 Pulse Ox 100 08/28/24 08:52 Oxygen Delivery Method Room Air 08/28/24 08:52 BMI result Body Mass Index 36.2 General: awake, alert, oriented. Answers questions appropriately. Fully engaged in examination. Skin: warm, dry, intact HEENT: Normocephalic. Hearing intact. Cardiac: External chest normal in appearance. Respiratory: No cough, audible wheezing or stridor. Abdomen: without gross distension. MS: No obvious swelling or deformities. Able to transition from sit to stand unassisted. Ambulates with bilaterally normal heel strike and toe off Tenderness to palpation left ITB, lateral thigh from top of trochanter to top of knee. Full ROM. Nontender over lumbar vertebrae or paraspinal muscles Nontender over GTB Neurological: Oriented to person, place, time and situation. Thought process intact. No gait abnormalities appreciated. Psychiatric: Appropriate mood and affect. Good judgment and insight. Assessment & Plan Assessment & Plan (1) Pain in left leg: Code(s): M79.605 - Pain in left leg Category: Medical (2) Meralgia paraesthetica: Code(s): G57.10 - Meralgia paresthetica, unspecified lower limb Category: Medical Plan The patient will undergo further diagnostic and therapeutic evaluations to address her chronic left leg pain. I will obtain prior MRI records for a comprehensive reassessment, and the patient will see Dr. Saldivar for ultrasound- guided diagnostic lateral cutaneous nerve block. 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 Symptomatic management will be aided by prescribed lidocaine cream for nocturnal use. Continued rest, pain modulation, and home exercises remain advised. Follow-up will be determined upon completion of these evaluations. During the consultation, I conveyed to the patient that her symptoms align with meralgia paresthetica requiring a multifaceted approach for management. I explained the benefits and drawbacks of potential interventions, inclusive of non-invasive lidocaine cream for pain alleviation and diagnostic ultrasound- guided nerve block with Dr. Saldivar. The patient expressed a desire to reduce her medication regimen; hence, we discussed the role of functional capacity testing in enhancing her work-life adaptation to her condition. The necessity to retrieve prior MRI reports was highlighted to confirm or negate any significant findings not communicated to us. I ensured that the patient understood the plan for ongoing assessment and stepped-up treatment as needed while emphasizing the importance of follow-up consultations to review results and strategize subsequent measures. Patient was informed and verbally consented to the use of an ambient scribe for clinic note documentation during this visit. Medications: New lidocaine 5% 1 appl topical BEDTIME 50 grams 3RF G57.10 - Meralgia paresthetica, unspecified lower limb, M79.605 - Pain in left leg Patient Instructions: - Apply lidocaine cream to the area of pain before bedtime to reduce nighttime discomfort. - Expect a call to schedule an ultrasound guided lateral femoral cutaneous nerve block with Dr. Saldivar. - Engage in prescribed home exercises for supportive pain management. - Remain active within comfort limits and avoid prolonged sitting or static positions. - Follow up with me and consult me or our office with any new symptoms, changes, or concerns. - Be alert for contact regarding functional capacity testing to assess work accommodations. - Call our office if you do not receive appointment details for recommended evaluations within the expected time. Coding Level of Care Code New Pt Level 4 (51725) Complex EM visit Add On G2211 Diagnoses Pain in left leg M79.605 Meralgia paraesthetica G57.10
[2024-08-28 08:52] VITALS: BP 136/79; PULSE 101; O2SAT 100; BMI 36.2
== END 2024-08-28 09:48 | disposition home or self-care (01) ==
LOC: HO.PMC 08:38
PROVIDERS: PCP Family Medicine; Referring Provider Family Medicine; Visit Provider Registered Nurse Emergency
DX: M79.605 Pain in left leg (principal); G57.10 Meralgia paresthetica, unspecified lower limb
CPT/HCPCS: 99204

== ENCOUNTER → 2024-08-28 08:37 | Outpatient (BNVA) | payer MEDICAID, SELFPAY | PROVIDERS: PCP Family Medicine; Referring Provider Family Medicine; Visit Provider Registered Nurse Emergency | DX: G57.10 Meralgia paresthetica, unspecified lower limb (principal); M79.605 Pain in left leg | CPT/HCPCS: 99212 ==